=== PATIENT | female | born 1985 | race American Indian/Alaskan Native ===

== ENCOUNTER 2020-05-05 21:04 | Observation (INO) | payer SELFPAY ==
[2020-05-05 21:39] LABS: Basophils # (Auto) 0.1 K/mm3 (0.0-0.1); Basophils % (Auto) 0.9 % (0.0-1.8); Eosinophils # (Auto) 0.6 K/mm3 (0.0-0.4); Eosinophils % (Auto) 4.1 % (0.0-4.3); Hematocrit 33.3 % (30.3-42.9); Hemoglobin 10.8 gm/dl (10.1-14.3); Lymphocytes # (Auto) 3.5 K/mm3 (1.2-5.4); Lymphocytes % (Auto) 22.3 % (13.4-35.0); Mean Corpuscular HGB Conc 32 % (30-34); Mean Corpuscular Volume 80 fl (79-97); Monocytes # (Auto) 0.8 K/mm3 (0.0-0.8); Monocytes % (Auto) 5.2 % (0.0-7.3); Platelet Count 640 K/mm3 (140-440); Red Blood Count 4.15 M/mm3 (3.65-5.03); Red Cell Distribution Width 16.9 % (13.2-15.2)
[2020-05-05 22:00] LABS: Alanine Aminotransferase 8 units/L (7-56); Albumin 3.6 g/dL (3.9-5); BUN/Creatinine Ratio 13; Blood Urea Nitrogen 9 mg/dL (7-17); Calcium 8.9 mg/dL (8.4-10.2); Hemolysis Index 0
--- NOTE | 2020-05-05 22:28 | Cat Scan Report ---
CT head/brain wo con INDICATION / CLINICAL INFORMATION: Dizziness. TECHNIQUE: Axial CT imaging of the brain was obtained without contrast. Coronal and sagittal reformatted imaging obtained and reviewed. All CT scans at this location are performed using CT dose reduction for ALAR A by means of automated exposure control. COMPARISON: None available. FINDINGS: No intracranial hemorrhage, mass, or midline shift is noted. No extra-axial fluid collection or sugge stion of acute territorial infarction. Ventricular system and basilar cisterns are unremarkable. Visualized paranasal sinuses and mastoid air cells are well aerated and clear. No calvarial fracture noted. IMPRESSION: 1. No acute intracranial abnormality. Signer Name: Chelsie Mcleod MD Signed: 05/05/2020 10:23 PM Workstation Name: [id number]
--- NOTE | 2020-05-05 23:03 | Emergency Department Report ---
ED Neuro Deficit HPI - General Chief Complaint: Neuro Symptoms/Deficit Stated Complaint: RIGHT SIDED WEAKNESS;SLURRED SPEECH Time Seen by Provider: 05/05/20 22:45 Source: patient Mode of arrival: Ambulatory Limitations: No Limitations - History of Present Illness Initial Comments: Patient is a 34-year-old female that presents emergency room with complaints of right-sided weakness, slurred speech and right-sided facial droop. Patient states her symptoms started at 430 and resolved at 530. Patient states she went to urgent care at 6 PM and they sent her here for an evaluation. Patient states at this time she is asymptomatic except for a headache. Patient states she never had a stroke. Patient has had a history of hypertension that she is comp liant with her medications. Patient denies chest pain. Patient denies shortness of breath. Patient states that her coworkers called the ambulance and they came and evaluated her and she refused to come to the hospital. Patient states that her right-sided arm and leg weakness made it difficult to get around patient states that her symptoms lasted only an hour. Patient states it was hard to speak. Patient denies recent travel. Patient denies recent international travel. Patient denies exposure to the novel coronavirus. Patient denies sick contacts. Patient denies fever and chills. Patient denies cough. Patient denies diarrhea. Patient denies coming in contact with anybody with symptoms of the novel coronavirus. -: Sudden Presenting Symptoms: Present: Weak/Paralyzed One Side, Sudden, Severe Headache, Facial Droop/Numbness, Unable to Speak Clearly History of same: No Place: work Severity: severe Quality: other (Now resolved.) Improves With: none Worsens With: none On Anticoagulants: No Context: sudden onset Associated Symptoms: headaches, weakness. denies: confusion, chest pain, cough, diaphoresis, fever/chills, loss of appetite, malise, nausea/vomiting, vertigo, seizures, shortness of breath, syncope Treatments Prior to Arrival: none - Related Data Home Medications: Previous Rx's Medication Instructions Recorded Last Taken Type Benzonatate [Tessalon Perles] 100 mg PO Q8HR #10 capsule 06/11/13 Unknown Rx Fluticasone Propionate [Flonase] 100 mcg NS QDAY #1 spray.susp 06/11/13 Unknown Rx guaiFENesin/CODEINE [Robitussin AC] 10 ml PO TID #120 oral.liqd 04/25/14 Unknown Rx Ibuprofen [Motrin 800 MG tab] 800 mg PO TID PRN #15 tablet 11/10/13 Unknown Rx LORazepam [Ativan] 0.5 mg PO Q6H PRN #15 tablet 11/10/13 Unknown Rx Allergies/Adverse Reactions: Allergies Allergy/AdvReac Type Severity Reaction Status Date / Time No Known Allergies Allergy Unverified 06/11/13 08:28 ED Review of Systems ROS: Stated complaint: RIGHT SIDED WEAKNESS;SLURRED SPEECH Other details as noted in HPI Constitutional: weakness. denies: chills, fever Eyes: denies: eye pain, eye discharge, vision change ENT: denies: ear pain, throat pain Respiratory: denies: cough, shortness of breath, wheezing Cardiovascular: denies: chest pain, palpitations Endocrine: no symptoms reported Gastrointestinal: denies: abdominal pain, nausea, diarrhea Genitourinary: denies: urgency, dysuria, discharge Musculoskeletal: denies: back pain, joint swelling, arthralgia Skin: denies: rash, lesions Neurological: as per HPI, headache, weakness, abnormal gait. denies: paresthesias Psychiatric: denies: anxiety, depression Hematological/Lymphatic: denies: easy bleeding, easy bruising ED Past Medical Hx - Past Medical History Previous Medical History?: Yes Hx Hypertension: Yes Additional medical history: Obesity - Surgical History Past Surgical History?: No - Family History Family history: no significant - Social History Smoking Status: Current Every Day Smoker Substance Use Type: None - Medications Home Medications: Home Medications Medication Instructions Recorded Confirmed Last Taken Type Benzonatate [Tessalon Perles] 100 mg PO Q8HR #10 capsule 06/11/13 Unknown Rx Fluticasone Propionate [Flonase] 100 mcg NS QDAY #1 spray.susp 06/11/13 Unknown Rx guaiFENesin/CODEINE [Robitussin AC] 10 ml PO TID #120 oral.liqd 06/11/13 Unknown Rx Ibuprofen [Motrin 800 MG tab] 800 mg PO TID PRN #15 tablet 11/10/13 Unknown Rx LORazepam [Ativan] 0.5 mg PO Q6H PRN #15 tablet 11/10/13 Unknown Rx ED Neuro Physical Exam - General Limitations: No Limitations General appearance: alert, in no apparent distress Suspected Stroke: No - Head Head exam: Present: atraumatic, normocephalic - Eye Eye exam: Present: normal appearance - ENT ENT exam: Present: mucous membranes moist - Neck Neck exam: Present: normal inspection - Respiratory Respiratory exam: Present: normal lung sounds bilaterally. Absent: respiratory distress - Cardiovascular Cardiovascular Exam: Present: regular rate, normal rhythm. Absent: systolic murmur, diastolic murmur, rubs, gallop - GI/Abdominal GI/Abdominal exam: Present: soft, normal bowel sounds - Extremities Exam Extremities exam: Present: normal inspection - Back Exam Back exam: Present: normal inspection - Neurological Exam Neurological exam: Present: alert, oriented X3 - NIHSS Assessment Interval: Baseline 1a. Level of Consciousness: alert/keenly responsive 1b. LOC Questions: answers both correctly 1c. LOC Commands: performs tasks correctly 2. Best Gaze: normal 3. Visual: no visual loss 4. Facial Palsy: normal symmetrical movement 5b. Motor Arm Right: no drift 5a. Motor Arm Left: no drift 6a. Motor Leg Left: no drift 6b. Motor Leg Right: no drift 7. Limb Ataxia: absent 8. Sensory: normal 9. Best Language: no aphasia 10. Dysarthria: normal 11. Extinction/Inattention: no abnormality Total Score: 0 Stroke Severity: No Stroke Symptoms - Psychiatric Psychiatric exam: Present: normal affect, normal mood - Skin Skin exam: Present: warm, dry, intact, normal color. Absent: rash ED Course Vital Signs 05/05/20 05/05/20 21:10 23:22 Temperature 99.6 F Pulse Rate 103 H Respiratory 18 18 Rate Blood Pressure 157/99 O2 Sat by Pulse 100 100 Oximetry - Reevaluation(s) Reevaluation #1: I discussed all results with patient. I discussed plan of care with patient. Patient agrees with plan of care and admission. Patient to be admitted to the hospitalist service. 05/05/20 23:06 - Consultations Consultation #1: Hospitalist consulted for admission. Hospitalist to admit patient. 05/05/20 23:06 - Lab Data Result diagrams: 05/05/20 21:29 05/05/20 21:29 Lab Results 05/05/20 05/05/20 05/05/20 Range/Units 21:29 21:29 21:29 WBC 15.7 H (4.5-11.0) K/mm3 RBC 4.15 (3.65-5.03) M/mm3 Hgb 10.8 (10.1-14.3) gm/dl Hct 33.3 (30.3-42.9) % MCV 80 (79-97) fl MCH 26 L (28-32) pg MCHC 32 (30-34) % RDW 16.9 H (13.2-15.2) % Plt Count 640 H (140-440) K/mm3 Lymph % (Auto) 22.3 (13.4-35.0) % [place] % (Auto) 5.2 (0.0-7.3) % Eos % (Auto) 4.1 (0.0-4.3) % Baso % (Auto) 0.9 (0.0-1.8) % Lymph # (Auto) 3.5 (1.2-5.4) K/mm3 [place] # (Auto) 0.8 (0.0-0.8) K/mm3 Eos # (Auto) 0.6 H (0.0-0.4) K/mm3 Baso # (Auto) 0.1 (0.0-0.1) K/mm3 Seg Neutrophils % 67.5 (40.0-70.0) % Seg Neutrophils # 10.6 H (1.8-7.7) K/mm3 Sodium 137 (137-145) mmol/L Potassium 3.4 L (3.6-5.0) mmol/L Chloride 100.8 (98-107) mmol/L Carbon Dioxide 27 (22-30) mmol/L Anion Gap 13 mmol/L BUN 9 (7-17) mg/dL Creatinine 0.7 (0.6-1.2) mg/dL Estimated GFR > 60 ml/min BUN/Creatinine Ratio 13 % Glucose 99 (65-100) mg/dL Calcium 8.9 (8.4-10.2) mg/dL Total Bilirubin 0.20 (0.1-1.2) mg/dL AST 10 (5-40) units/L ALT 8 (7-56) units/L Alkaline Phosphatase 53 (35-129) units/L Total Protein 7.1 (6.3-8.2) g/dL Albumin 3.6 L (3.9-5) g/dL Albumin/Globulin Ratio 1.0 % HCG, Qual Negative (Negative) - EKG Data -: EKG Interpreted by Me EKG shows normal: sinus rhythm, axis, intervals, QRS complexes, ST-T waves Rate: tachycardia Interpretation: no acute changes - Radiology Data Radiology results: report reviewed CT head/brain wo con INDICATION / CLINICAL INFORMATION: Dizziness. TECHNIQUE: Axial CT imaging of the brain was obtained without contrast. Coronal and sagittal reformatted imaging obtained and reviewed. All CT scans at this location are performed using CT dose reduction for ALARA by means of automated exposure control. COMPARISON: None available. FINDINGS: No intracranial hemorrhage, mass, or midline shift is noted. No extra-axial fluid collection or suggestion of acute territorial infarction. Ventricular system and basilar cisterns are unremarkable. Visualized paranasal sinuses and mastoid air cells are well aerated and clear. No calvarial fracture noted. IMPRESSION: 1. No acute intracranial abnormality. - Medical Decision Making Patient is a 34-year-old female that presents emergency room with complaints of for 30 and resolved at 530. Patient stated it started at work and resolved while she was to work. 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 Patient had a head CT which was negative for acute finding. Patient had labs which were negative for acute findings. Patient symptoms are consistent with a possible TIA. Patient also complained of headache. Patient had an EKG done which was negative for acute f indings. I personally reviewed the EKG. Patient admitted to the hospital service for further evaluation and treatment. Critical care time documented due to the multiple reassessments, prolonged time at the bedside, interpretation of diagnostics and labs. - Differential Diagnosis TIA, weakness, slurred speech, encephalopathy, electrolyte imbalance, Critical Care Time: Yes Critical care time in (mins) excluding proc time.: 35 Critical care attestation.: If time is entered above; I have spent that time in minutes in the direct care of this critically ill patient, excluding procedure time. Critical Care Time: 35 minutes ED Disposition Clinical Impression: Slurred speech, Right sided weakness, TIA (transient ischemic attack) Headache Qualifiers: Headache type: unspecified Headache chronicity pattern: acute headache Intractability: not intractable Qualified Code(s): R51.9 - Headache, unspecified Disposition: DC-09 OP ADMIT IP TO THIS HOSP Is pt being admited?: Yes Does the pt Need Aspirin: No Condition: Critical Time of Disposition: 23:30
[2020-05-05] MEDS ORDERED: hydrALAZINE 20 MG/1 ML INJ IV PRN (23:53)
[2020-05-05] MEDS ORDERED: ALUM-MAG HYDROXIDE-SIMETHICONE 200-200-20MG/5ML ORAL LIQD 30 ML PO PRN (23:58)
[2020-05-05] MEDS ORDERED: traZODone 50 MG TAB PO PRN (23:58)
[2020-05-05] MEDS ORDERED: ONDANSETRON 4 MG/2 ML INJ IV PRN (23:58)
[2020-05-05] MEDS ORDERED: traMADol 50 MG TAB PO PRN (23:58)
[2020-05-05] MEDS ORDERED: SENNOSIDES 8.6 MG TAB PO PRN (23:58)
--- NOTE | 2020-05-06 00:08 | History and Physical Report ---
History of Present Illness Date of examination: 05/05/20 Date of admission: 05/05/20 23:11 Chief complaint: TIA and Slurred Speech History of present illness: Patient is a 34-year-old female that presents emergency room with complaints of right-sided weakness, slurred speech and right-sided facial droop. Patient states her symptoms started at 430 and resolved at 530. Patient states she went to urgent care at 6 PM and they sent her here for an evaluation. Patient states at this time she is asymptomatic except for a headache. Patient states she never had a stroke. Patient has had a history of hypertension that she is compliant with her medications. Patient denies chest pain. Patient denies shortness of breath. Patient states that her coworkers called the ambulance and they came and evaluated her and she refused to come to the hospital. Patient states that her right-sided arm and leg weakness made it difficult to get around patient states that her symptoms lasted only an hour. Patient states it was hard to speak. ED work-up shows WBC 15.7, hemoglobin 10.3, platelets 640, sodium 137, potassium 3.4, creatinine 0.7 CT of the head with no acute finding. Patient seen in the ED at bedside. Patient is alert and oriented x3. She said she came with TIA slurred speech and right-sided weakness. On assessment, patient right-sided weakness has resolved. Patient speech is clear and easy to understand. Patient reports that her symptom has resolved Patient blood pressure is elevated 170 110 and 157/99. Patient admits she is compliant with her blood pressure medicine and she took her blood pressure medicine this morning. I reviewed lab, medication record, and vital signs. No acute finding. Past History Past Medical History: hypertension Past Surgical History: No surgical history Social history: lives with family, smoking. denies: IV drug use, other (She said she lives with her ) Family history: hypertension (Mom has HTN) Medications and Allergies Allergies Allergy/AdvReac Type Severity Reaction Status Date / Time No Known Allergies Allergy Unverified 06/11/13 08:28 Home Medications Medication Instructions Recorded Confirmed Last Taken Type Benzonatate [Tessalon Perles] 100 mg PO Q8HR #10 capsule 06/11/13 Unknown Rx Fluticasone Propionate [Flonase] 100 mcg NS QDAY #1 spray.susp 06/11/13 Unknown Rx guaiFENesin/CODEINE [Robitussin AC] 10 ml PO TID #120 oral.liqd 06/11/13 Unknown Rx Ibuprofen [Motrin 800 MG tab] 800 mg PO TID PRN #15 tablet 11/10/13 Unknown Rx LORazepam [Ativan] 0.5 mg PO Q6H PRN #15 tablet 11/10/13 Unknown Rx Active Meds: Active Medications Al Hydrox/Mg Hydrox/Simethicone (Alum-Mag Hydroxide-Simethicone 060-040-30wq/5ml Oral Liqd 30 Ml) 15 ml PO Q4H PRN PRN Reason: Indigestion Amlodipine Besylate (Amlodipine 10 Mg Tab) 10 mg PO QDAY PRIYANKA Amlodipine Besylate (Amlodipine 10 Mg Tab) 10 mg PO NOW ONE Stop: 05/06/20 23:56 Hydralazine HCl (Hydralazine 20 Mg/1 Ml Inj) 5 mg IV Q4H PRN PRN Reason: Blood Pressure Ondansetron HCl (Ondansetron 4 Mg/2 Ml Inj) 4 mg IV Q4H PRN PRN Reason: Nausea And Vomiting Senna (Sennosides 8.6 Mg Tab) 8.6 mg PO Q12H PRN PRN Reason: Laxative Effect Tramadol HCl (Tramadol 50 Mg Tab) 50 mg PO Q4H PRN PRN Reason: Pain, Moderate (4-6) Trazodone HCl (Trazodone 50 Mg Tab) 50 mg PO QHS PRN PRN Reason: Insomnia Review of Systems Constitutional: weakness Ears, nose, mouth and throat: no epistaxis Breasts: no discharge Cardiovascular: high blood pressure Respiratory: no congestion, no wheezing Gastrointestinal: no melena, no hematochezia Genitourinary Female: no nocturia Rectal: no pain Musculoskeletal: no neck stiffness Integumentary: no rash, no pruritis Neurological: no head injury Psychiatric: no disorientation Endocrine: no polydipsia Hematologic/Lymphatic: no easy bruising, no easy bleeding Allergic/Immunologic: no urticaria, no allergic rhinitis, no wheezing Exam - Constitutional Vitals: Temp Pulse Resp BP Pulse Ox 99.6 F 103 H 18 157/99 100 05/05/20 21:10 05/05/20 21:10 05/05/20 23:22 05/05/20 21:10 05/05/20 23:22 General appearance: Present: no acute distress, well-nourished, obese - EENT Eyes: Present: PERRL ENT: hearing intact, clear oral mucosa - Neck Neck: Present: supple, normal ROM - Respiratory Respiratory effort: normal Respiratory: bilateral: CTA - Cardiovascular Heart rate: 103 Heart Sounds: Present: S1 & S2. Absent: rub, click - Extremities Extremities: pulses symmetrical, No edema Peripheral Pulses: within normal limits - Abdominal General gastrointestinal: Present: soft, non-tender, non-distended, normal bowel sounds Female genitourinary: Present: normal - Integumentary Integumentary: Present: clear, warm, dry - Musculoskeletal Musculoskeletal: gait normal, strength equal bilaterally - Psychiatric Psychiatric: appropriate mood/affect, intact judgment & insight - Neurologic Neurologic: CNII-XII intact, moves all extremities - Allied Health Allied health notes reviewed: nursing Results - Labs CBC & Chem 7: 05/05/20 21:29 05/06/20 05:17 Labs: Abnormal lab results 05/05/20 05/05/20 Range/Units 21:29 21:29 WBC 15.7 H (4.5-11.0) K/mm3 MCH 26 L (28-32) pg RDW 16.9 H (13.2-15.2) % Plt Count 640 H (140-440) K/mm3 Eos # (Auto) 0.6 H (0.0-0.4) K/mm3 Seg Neutrophils # 10.6 H (1.8-7.7) K/mm3 Potassium 3.4 L (3.6-5.0) mmol/L Albumin 3.6 L (3.9-5) g/dL Assessment and Plan - Patient Problems (1) TIA (transient ischemic attack) Current Visit: Yes Status: Acute Plan to address problem: Patient admitted with TIA and right-sided weakness CT of the head done no acute finding Patient denies weakness of any extremity at the time of this assessment Speech has also improved MRI brain, MRA head and neck (2) Right sided weakness Current Visit: Yes Status: Acute Plan to address problem: Likely secondary to TIA with elevated blood pressure CT showed no acute finding Range of motion upper and lower extremity intact No weakness noted (3) Slurred speech Current Visit: Yes Status: Acute Plan to address problem: Patient speech has improved Speech pathologist consulted (4) Tobacco abuse Current Visit: Yes Status: Acute Plan to address problem: Patient admits tobacco use Discussed tobacco use cessation Cardiovascular and neoplasm syndrome of tobacco use explained to patient Patient refuses nicotine patch but says she will quit (5) Marijuana use Current Visit: Yes Status: Acute Plan to address problem: Patient admits marijuana use Discussed cannabis use cessation (6) Essential (primary) hypertension Current Visit: Yes Status: Acute Plan to address problem: Monitor blood pressure Resume home antihypertensive As needed hydralazine We will adjust blood pressure medicine if needed (7) Headache Current Visit: Yes Status: Acute Qualifiers: Headache type: unspecified Headache chronicity pattern: acute headache Intractability: not intractable Qualified Code(s): R51.9 - Headache, unspecified Plan to address problem: Has improved Pain medicine as needed (8) Hypokalemia Current Visit: Yes Status: Acute Plan to address problem: Replace potassium A.m. lab Replace electrolytes as needed (9) Thrombocytosis Current Visit: Yes Status: Acute Plan to address problem: Questionable cause Monitor platelet level Iron studies follow-up with results (10) Morbid (severe) obesity due to excess calories Current Visit: Yes Status: Acute Plan to address problem: Discussed lifestyle modification Healthy diet including more fruits and vegetables Advised on importance of regular exercise and weight management Hemoglobin A1c ordered follow-up with results. (11) DVT prophylaxis Current Visit: Yes Status: Acute Plan to address problem: SCD
[2020-05-06 01:22] LABS: Iron 23 ug/dL (37-170); Total Iron Binding Capacity 344 mcg/dL (250-450)
[2020-05-06] MEDS ORDERED: POTASSIUM CHLORIDE ER 20 MEQ TAB PO ONE ×2 (01:25→05:00)
[2020-05-06 06:34] LABS: Blood Urea Nitrogen 10 mg/dL (7-17); Calcium 8.4 mg/dL (8.4-10.2); Hemolysis Index 2
[2020-05-06 06:35] LABS: BUN/Creatinine Ratio 14
[2020-05-06 08:44] LABS: Bilirubin,Urine NEG (Negative); Blood,Urine NEG (Negative); Color,Urine Straw (Yellow); Protein,Urine <15 mg/dL mg/dL (Negative); Urobilinogen,Urine < 2.0 mg/dL (<2.0); WBC,Urine < 1.0 /HPF (0.0-6.0)
[2020-05-06] MEDS ORDERED: amLODIPine 10 MG TAB PO SCH (10:00)
[2020-05-06 10:21] LABS: Amphetamine Screen,Urine Negative; Benzodiazepines Screen,Urine Negative; Cannabinoid Screen,Urine Negative; Cocaine Screen,Urine Negative; Methadone Screen,Urine Negative; Opiate Screen,Urine Negative
[2020-05-06 10:50] LABS: Basophils # (Auto) 0.2 K/mm3 (0.0-0.1); Basophils % (Auto) 1.2 % (0.0-1.8); Eosinophils # (Auto) 0.5 K/mm3 (0.0-0.4); Eosinophils % (Auto) 3.6 % (0.0-4.3); Hematocrit 34.2 % (30.3-42.9); Lymphocytes # (Auto) 2.4 K/mm3 (1.2-5.4); Lymphocytes % (Auto) 17.6 % (13.4-35.0); Mean Corpuscular HGB Conc 32 % (30-34); Mean Corpuscular Volume 81 fl (79-97); Monocytes # (Auto) 0.6 K/mm3 (0.0-0.8); Monocytes % (Auto) 4.6 % (0.0-7.3); Platelet Count 659 K/mm3 (140-440); Red Blood Count 4.22 M/mm3 (3.65-5.03); Red Cell Distribution Width 17.2 % (13.2-15.2)
--- NOTE | 2020-05-06 11:06 | Discharge Summary ---
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 Patient states her symptoms started at 430 and resolved at 530. Patient states she went to urgent care at 6 PM and they sent her here for an evaluation. Patient states at this time she is asymptomatic except for a headache. Patient states she never had a stroke. Patient has had a history of hypertension that she is compliant with her medications. Patient denies chest pain. Patient denies shortness of breath. Patient states that her coworkers called the ambulance and they came and evaluated her and she refused to come to the hospital. Patient states that her right-sided arm and leg weakness made it difficult to get around patient states that her symptoms lasted only an hour. Patient states it was hard to speak. ED work-up shows WBC 15.7, hemoglobin 10.3, platelets 640, sodium 137, potassium 3.4, creatinine 0.7 CT of the head with no acute finding. Patient seen in the ED at bedside. Patient is alert and oriented x3. She said she came with TIA slurred speech and right-sided weakness. On assessment, patient right-sided weakness has resolved. Patient speech is clear and easy to understand. Patient reports that her symptom has resolved Patient blood pressure is elevated 170 110 and 157/99. Patient admits she is compliant with her blood pressure medicine and she took her blood pressure medicine this morning. I reviewed lab, medication record, and vital signs. No acute finding. Patient seen and examined this morning no New complaints symptoms have resolved. The patient states that she is compliant with her blood pressure medication but feels that she needs a higher dose. I educated her on the findings at this time. The diagnosis of TIA. She is a smoker she states that she will quit smoking also encouraged her to lose weight she verbalized understanding 50 minutes of counseling was provided. uds was negative No infectious sources was noted TIA Hypertension Leukocytosis/SIRS with no organ dysfunction Morbid obesity BMI 48.1 Right-sided hemiparesis with slurred speech now resolved Tobacco use disorder Marijuana use disorder Essential (primary) hypertension Headache Hypokalemia Thrombocytosis Disposition: DC-01 TO HOME OR SELFCARE Final Discharge Diagnosis (Prints w/discharge instructions): TIA Time spent for discharge: 35-minute Core Measure Documentation - Palliative Care Palliative Care/ Comfort Measures: Not Applicable - Core Measures Any of the following diagnoses?: stroke - Stroke Discharge Requirements Statin for LDL = or >70 mg/dl on DC: Yes Anticoag for atrial fib/atrial flutter: Not Applicable Antithrombotic for ischemic stroke: Yes Exam - Physical Exam Narrative exam: VITAL SIGNS: Reviewed. GENERAL: The patient appears normally developed, Vital signs as documented. HEAD: No signs of head trauma. EYES: Pupils are equal. Extraocular motions intact. EARS: Hearing grossly intact. MOUTH: Oropharynx is normal. NECK: No adenopathy, no JVD. CHEST: Chest with clear breath sounds bilaterally. No wheezes, rales, or rhonchi. CARDIAC: Regular rate and rhythm. S1 and S2, without murmurs, gallops, or rubs. VASCULAR: No Edema. Peripheral pulses normal and equal in all extremities. ABDOMEN: Soft, non tender and non distended. No rebound or guarding, and no masses palpated. Bowel Sounds normal. MUSCULOSKELETAL: Good range of motion of all major joints. Extremities without clubbing, cyanosis or edema. NEUROLOGIC EXAM: Alert and oriented x 3 No focal sensory or strength deficits. Speech normal. Follows commands. PSYCHIATRIC: Mood normal. SKIN: detail exam as documented in skin assessment - Constitutional Vitals: Temp Pulse Resp BP Pulse Ox 98.0 F 100 H 20 147/91 98 05/06/20 04:05 05/06/20 04:05 05/06/20 04:05 05/06/20 04:05 05/06/20 04:05 Plan Activity: advance as tolerated, fall precautions Diet: low fat Special Instructions: record daily weights, record daily BP diary, smoking cessation Follow up with: ALBERTO VACA MD [Primary Care Provider] - 7 Days ROLLY FELICIANO MD [Staff Physician] - 7 Days Prescriptions: AtorvaSTATin [Lipitor] 40 mg PO QHS #30 tab Aspirin [Adult Aspirin] 81 mg PO DAILY #30 tablet. amLODIPine 10 mg PO QDAY #30 tablet
[2020-05-06 11:16] VITALS: BP 144/77
[2020-05-06] MEDS: ASPIRIN 81 MG TAB CHEW PO SCH ×2 (13:46→14:36)
[2020-05-06] MEDS ORDERED: amLODIPine 10 MG TAB PO ONE (23:55)
--- NOTE | 2020-05-08 09:17 | Electrocardiograph Report ---
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
== END 2020-05-06 14:48 | disposition home or self-care (01) ==
LOC: ED 21:04 → 4A 23:11
PROVIDERS: ADMIT Internal Medicine Geriatric Medicine; ATTEND Internal Medicine
DX: G45.9 Transient cerebral ischemic attack, unspecified (principal); I10 Essential (primary) hypertension; M62.81 Muscle weakness (generalized); R47.81 Slurred speech; F12.90 Cannabis use, unspecified, uncomplicated; F17.210 Nicotine dependence, cigarettes, uncomplicated; R51.9 Headache, unspecified; E87.6 Hypokalemia; D47.3 Essential (hemorrhagic) thrombocythemia; E66.01 Morbid (severe) obesity due to excess calories; Z68.42 Body mass index [BMI] 45.0-49.9, adult; Z79.899 Other long term (current) drug therapy
CPT/HCPCS: 36415; 70450; 80048; 80053; 80307; 81001; 83036; 83550; 84703; 85025; 93005; 93306; 99291; 99406; G0378

== ENCOUNTER 2021-05-16 10:47 | Outpatient (CLI) | payer BC ==
--- NOTE | 2021-05-16 12:07 | Cat Scan Report ---
CT ABDOMEN AND PELVIS WITHOUT CONTRAST INDICATION / CLINICAL INFORMATION: K43.9 VENTRAL HERNIA W/O OBSTRUCTION OR GANGRENE. TECHNIQUE: All CT scans at this location are performed using CT dose reduction for ALARA by means of automated exposure control. COMPARISON: None available. FINDINGS: ABDOMEN: There is a moderate sized fat-containing midline ventral hernia located approximately 4 cm a kasi the umbilicus. The mouth of the hernia sac measures approximately 2.3 cm. The hernia sac measure s 5.8 cm transverse. There is moderate generalized increased density of the fat in the hernia sac wit h localized fluid in its dependent portion. No bowel is seen in the hernia sac. There is mild to mode rate generalized nonspecific body wall edema. There is an 11 mm simple cyst-appearing lesion in the posterior segment of the right lobe of the live r. The gallbladder, bile ducts, pancreas, spleen, adrenal glands and kidneys are normal. There is a s mall hiatal hernia. There is no evidence of bowel obstruction, wall thickening or free air. No adenop athy is present. The lung bases are clear. PELVIS: There is an enlarged, lobulated uterus extending above the iliac crests to just below the lev el of the kidneys. The uterus measures approximately 19 cm in length. I do not identify an adnexal ma ss or free fluid. A normal appendix is present and there is no evidence of diverticulitis. The distal ureters and urinary bladder are normal. No acute osseous abnormality is present. IMPRESSION: 1. Moderate sized midline epigastric fat-containing ventral hernia. There is moderate inflammation an d mild fluid in the hernia sac characteristic of strangulation. 2. Significantly enlarged uterus containing multiple fibroids. Signer Name: Santos Chaidez MD Signed: 05/16/2021 12:03 PM Workstation Name: [employer]
== END 2021-05-16 10:48 | disposition home or self-care (01) ==
LOC: CT 10:47
PROVIDERS: ATTEND Surgery
DX: K43.9 Ventral hernia without obstruction or gangrene (principal); K44.9 Diaphragmatic hernia without obstruction or gangrene; D25.9 Leiomyoma of uterus, unspecified; K76.89 Other specified diseases of liver
CPT/HCPCS: 74176